=== PATIENT | female | born 1940 | race Caucasian/White ===

== ENCOUNTER 2017-09-16 13:41 | Emergency (ER) | payer OTHER ==
[2017-09-16 14:00] VITALS: RESP 18; TEMP 98.4; O2SAT 98
--- NOTE | 2017-09-16 14:17 | C.PDOC ---
History Of Present Illness 77 Y/O FEMALE PRESENTS TO ED WITH C/O NEW ONSET RIGHT MID BACK PAIN X 3 DAYS. PATIENT DENIES TRAUMA AND REPORTS PAIN IS LOCALIZED WORSE WITH MOVEMENT. NO PAIN MEDS TRIED.NO OTHER ASSOCIATED SYMPTOMS. EXAM NAD NONTOXIC BACK +MILD TEND R MID BACK NO SPASM, LS TEND. NO CVAT LUNGS CTA B/L NO W/R/R REMAINDER NEG Time Seen by Provider: 09/16/17 14:03 Chief Complaint (Nursing): Back Pain History Per: Patient History/Exam Limitations: no limitations Onset/Duration Of Symptoms: Days Current Symptoms Are (Timing): Still Present Quality Of Discomfort: "Pain" Past Medical History Reviewed: Historical Data, Nursing Documentation, Vital Signs Vital Signs: Last Vital Signs Temp 98.4 F 09/16/17 13:58 Pulse 87 09/16/17 13:58 Resp 18 09/16/17 13:58 BP 134/92 H 09/16/17 13:58 Pulse Ox 98 09/16/17 15:02 - Medical History PMH: HTN Surgical History: No Surg Hx Family History: States: No Known Family Hx - Social History Hx Tobacco Use: No Hx Alcohol Use: No Hx Substance Use: No - Immunization History Hx Tetanus Toxoid Vaccination: No Hx Influenza Vaccination: No Hx Pneumococcal Vaccination: No Review Of Systems Constitutional: Negative for: Fever, Chills Gastrointestinal: Negative for: Nausea, Vomiting, Abdominal Pain Genitourinary: Negative for: Dysuria, Hematuria, Vaginal Bleeding Musculoskeletal: Positive for: Back Pain Skin: Negative for: Rash Neurological: Negative for: Numbness Physical Exam - Physical Exam Appears: Non-toxic, No Acute Distress Skin: Warm, Dry, No Rash Head: Atraumatic, Normacephalic Eye(s): bilateral: Normal Inspection Oral Mucosa: Moist Cardiovascular: Rhythm Regular Respiratory: Normal Breath Sounds, No Rales, No Rhonchi, No Wheezing Gastrointestinal/Abdominal: Soft, No Tenderness, No Guarding, No Rebound Back: No CVA Tenderness, No Muscle Spasm, No Paraspinal Tenderness, Other (Mild right mid back tenderness ) Extremity: Normal ROM, Capillary Refill (<2 seconds) Neurological/Psych: Oriented x3, Normal Speech, Normal Motor, Normal Sensation ED Course And Treatment O2 Sat by Pulse Oximetry: 98 (RA) Pulse Ox Interpretation: Normal - Radiology CXR: Interpreted by Me CXR Interpretation: Yes: No Acute Disease Disposition Counseled Patient/Family Regarding: Studies Performed, Diagnosis, Need For Followup, Rx Given - Disposition Referrals: YOUR,PMD [Other] Disposition: HOME/ ROUTINE Disposition Time: 15:38 Condition: IMPROVED Additional Instructions: APLICA PARCHE AL MARÍA AFECTADA. MAX 3 PARCHES A LA VEZ. RETIRE EL PATCH 12 HORAS DESPUS DE LA APLICACIN INICIAL. ALTERNATIVAS 12 HORAS ACTIVADAS, 12 HORAS DESACTIVADAS. Prescriptions: Acetaminophen [Tylenol 325mg tab] 650 mg PO Q6 #30 tab Cyclobenzaprine [Flexeril] 5 mg PO TID #15 tab Ibuprofen [Motrin] 400 mg PO QID #30 tab Lidocaine 5% [Lidoderm] 1 ea TD PRN PRN #10 patch PRN Reason: Pain, Moderate (4-7) Instructions: Upper Back Pain (DC) Forms: [employer] ([place]) Print Language: SOUTH SUDANESE - Clinical Impression Clinical Impression: Back pain - Scribe Statement The provider has reviewed the documentation as recorded by the Scribcamilo Vallejo All medical record entries made by the Rodyibcamilo were at my direction and personally dictated by me. I have reviewed the chart and agree that the record accurately reflects my personal performance of the history, physical exam, medical decision making, and the department course for this patient. I have also personally directed, reviewed, and agree with the discharge instructions and disposition.
[2017-09-16] MEDS ORDERED: Lidocaine 5% Patch TD STA (14:18)
[2017-09-16] MEDS ORDERED: Lidocaine 5% Patch TD ONE (14:37)
--- NOTE | 2017-09-16 15:44 | RAD ---
Chest x-ray two views History: Right mid back pain. Comparison: 02/26/2014 Findings: Again identified are prominent fibronodular changes at the lung apices and upper lung zones with upper lobe volume loss bilaterally. This appears increased in prominence since the prior study. Correlation with chest CT may be helpful if clinically indicated. Diffuse increased interstitial lung markings. Probable calcified nodules and or nodules in the lung wilcox bilaterally. Tortuous ectatic aorta. Heart size within normal limits. Calcification at the aortic knob. Degenerative changes in the spine and shoulders. Impression: Again identified are prominent fibronodular changes at the lung apices and upper lung zones with upper lobe volume loss bilaterally. This appears increased in prominence since the prior study. Correlation with chest CT may be helpful if clinically indicated. Diffuse increased interstitial lung markings. Probable calcified nodules and or nodules in the lung wilcox bilaterally. Tortuous ectatic aorta. Heart size within normal limits. Calcification at the aortic knob. Degenerative changes in the spine and shoulders.
[2017-09-16 15:52] VITALS: BP 128/88; PULSE 81
== END 2017-09-16 15:52 | disposition home or self-care (01) ==
LOC: C.ER 13:41
DX: M54.89 Other dorsalgia (principal)

== ENCOUNTER 2018-02-16 15:04 | Emergency (ER) | payer OTHER ==
[2018-02-16 15:16] VITALS: RESP 18; TEMP 98.6; O2SAT 100
--- NOTE | 2018-02-16 16:07 | C.PDOC ---
History Of Present Illness 77 years old female presents to ED for complaints of right upper back pain that began 3 days ago. Patient describes pain as aching and worsening with movement. Patient also states "it feels like a knot there." She reports applying over the counter muscle cream over are and taking Tylenol with minimal relief. Otherwise, denies chest pain, shortness of breath, cough, or urinary symptoms. Time Seen by Provider: 02/16/18 15:24 Chief Complaint (Nursing): Back Pain History Per: Patient History/Exam Limitations: no limitations Onset/Duration Of Symptoms: Days (3) Current Symptoms Are (Timing): Still Present Quality Of Discomfort: Aching Previous Symptoms: None Associated Symptoms: None Exacerbating Factor(s): Movement Recent travel outside of the [place]: No Past Medical History Reviewed: Historical Data, Nursing Documentation, Vital Signs Vital Signs: Last Vital Signs Temp 98.6 F 02/16/18 15:13 Pulse 115 H 02/16/18 15:13 Resp 18 02/16/18 15:13 BP 142/91 H 02/16/18 15:13 Pulse Ox 100 02/16/18 15:13 - Medical History PMH: HTN Surgical History: No Surg Hx Family History: States: Unknown Family Hx - Social History Hx Tobacco Use: No Hx Alcohol Use: No Hx Substance Use: No - Immunization History Hx Tetanus Toxoid Vaccination: No Hx Influenza Vaccination: No Hx Pneumococcal Vaccination: No Review Of Systems Constitutional: Negative for: Fever, Chills Cardiovascular: Negative for: Chest Pain, Palpitations Respiratory: Negative for: Shortness of Breath Gastrointestinal: Negative for: Nausea, Vomiting, Diarrhea Musculoskeletal: Positive for: Back Pain (Right upper back ) Skin: Negative for: Rash Neurological: Negative for: Weakness, Numbness Physical Exam - Physical Exam Appears: Non-toxic, No Acute Distress Skin: Normal Color, Warm, Dry, No Rash Head: Atraumatic, Normacephalic Eye(s): bilateral: Normal Inspection, PERRL, EOMI Oral Mucosa: Moist Neck: Normal ROM, Supple Chest: Symmetrical, No Tenderness Cardiovascular: Rhythm Regular, No Murmur Respiratory: Normal Breath Sounds, No Rales, No Rhonchi, No Wheezing Gastrointestinal/Abdominal: Bowel Sounds (Active ), Soft, No Tenderness Back: Other (Right parathoracic muscle tenderness and palpable spasm ) Extremity: Bilateral: Atraumatic, Normal Color And Temperature, Normal ROM Pulses: Left Radial: Normal, Right Radial: Normal Neurological/Psych: Oriented x3, Normal Speech Gait: Steady ED Course And Treatment O2 Sat by Pulse Oximetry: 100 (RA) Pulse Ox Interpretation: Normal Medical Decision Making Medical Decision Making: Plan: * Flexeril * Toradol Progress: Patient given meds for treatment. On re-eval, she was sitting comfortably in no distress. She has no vertebral tenderness. She was ambulatory without discomfort. Patient was stable for discharge. Disposition Counseled Patient/Family Regarding: Diagnosis, Need For Followup - Disposition Referrals: Corinne Prater [Staff Provider] - Disposition: HOME/ ROUTINE Disposition Time: 16:07 Condition: GOOD Additional Instructions: Aplique calor al jailene jonathan 15-20 minutos a la vez, 2 o 3 veces por da. Mishel Tylenol para el dolor [place] Motrin para el dolor cada 6-8 horas, segn sea necesario, con alimentos que no molesten el estmago. [place] relajante muscular cada 6-8 horas segn sea necesario, la precaucin puede causar somnolencia Rafael un seguimiento con anthony mdico de cabecera o clnica en 2 a 5 silverio para per evaluacin adicional Regrese al departamento de emergencias en cualquier momento si los sntomas persisten o empeoran. Prescriptions: Acetaminophen [Pain Reliever] 500 mg PO Q8 #30 tablet Cyclobenzaprine [Cyclobenzaprine HCl] 10 mg PO TID #30 tab Ibuprofen [Motrin] 600 mg PO Q8 #30 tab Instructions: Upper Back Pain (DC) Forms: [employer] (Ivorian) Print Language: JAPANESE - POA Present On Arrival: None - Clinical Impression Clinical Impression: Thoracic back pain - PA / FAMILY MEMBER CARETAKER / Resident Statement MD/DO has reviewed & agrees with the documentation as recorded. - Scribe Statement The provider has reviewed the documentation as recorded by the Rodyibe Cole Oliveira All medical record entries made by the Scribe were at my direction and personally dictated by me. I have reviewed the chart and agree that the record accurately reflects my personal performance of the history, physical exam, medical decision making, and the department course for this patient. I have also personally directed, reviewed, and agree with the discharge instructions and disposition.
[2018-02-16 17:20] VITALS: BP 126/84; PULSE 90
== END 2018-02-16 16:41 | disposition home or self-care (01) ==
LOC: C.ER 15:04
DX: M54.6 Pain in thoracic spine (principal); I10 Essential (primary) hypertension
CPT/HCPCS: 96372; 99284; J1885